=== PATIENT | female | born 1930 | race Caucasian/White ===

== ENCOUNTER 2017-03-21 08:47 | Outpatient (CLI) | payer MEDICARE, OTHER ==
--- NOTE | 2017-03-21 11:04 | CT ---
CT CHEST WITH CONTRAST: Date: 03/21/17 HISTORY: Lung cancer. COMPARISON: Prior CT chest dated 11/06/16. FINDINGS: The left upper lobe nodular density is similar along with nodularity of the right major fissure. The soft tissue thickening has decreased. Studding along the right heart border is improved. There are at electatic changes of the lung bases. Upper abdomen is unremarkable. The heart size is enlarged. No pericardial effusion. No acute osseous abnormality. Left upper lobe pulmonary nodule is similar, likely benign in nature. IMPRESSION: 1. Interval improvement of the studding along the right cardiac border, soft tissue thickening upper lobe right major fissure along the suture line, and decreased thickness of the right upper. 2. No new evidence of metastatic disease. 3. Density in the left lung apex is unchanged. This may be focal area of scar. POS: NORM
[2017-03-21] MEDS ORDERED: Iopamidol 370 76% 100 ML VIAL ONE (16:25)
== END 2017-03-21 08:48 | disposition home or self-care (01) ==
LOC: CT 08:47
PROVIDERS: ATTEND Internal Medicine Medical Oncology
DX: C34.90 Malignant neoplasm of unspecified part of unspecified bronchus or lung (principal)
CPT/HCPCS: 36415; 71260; 82565

== ENCOUNTER 2017-04-22 14:09 | Outpatient (CLI) | payer MEDICARE, OTHER | END 2017-04-22 14:10 | disposition home or self-care (01) | LOC: BICRAD 14:09 | PROVIDERS: ATTEND Internal Medicine Medical Oncology | DX: C34.90 Malignant neoplasm of unspecified part of unspecified bronchus or lung (principal) | CPT/HCPCS: 71046 ==

== ENCOUNTER 2017-06-10 10:05 | Outpatient (CLI) | payer MEDICARE, OTHER | END 2017-06-10 10:06 | disposition home or self-care (01) | LOC: BICRAD 10:05 | PROVIDERS: ATTEND Internal Medicine Medical Oncology | DX: C34.90 Malignant neoplasm of unspecified part of unspecified bronchus or lung (principal); J44.9 Chronic obstructive pulmonary disease, unspecified; I70.0 Atherosclerosis of aorta | CPT/HCPCS: 71046 ==

== ENCOUNTER 2017-08-05 08:27 | Outpatient (CLI) | payer MEDICARE, OTHER ==
[2017-08-05] MEDS ORDERED: ISOVUE-370 76%-LOCM 1 ML ONE (14:51)
== END 2017-08-05 08:28 | disposition home or self-care (01) ==
LOC: BICCT 08:27
PROVIDERS: ATTEND Internal Medicine Medical Oncology
DX: C34.11 Malignant neoplasm of upper lobe, right bronchus or lung (principal)
CPT/HCPCS: 71260; 82565

== ENCOUNTER 2017-10-15 16:33 | Outpatient (CLI) | payer MEDICARE, OTHER | END 2017-10-15 16:34 | disposition home or self-care (01) | LOC: BICRAD 16:33 | PROVIDERS: ATTEND Internal Medicine Medical Oncology | DX: C34.11 Malignant neoplasm of upper lobe, right bronchus or lung (principal) | CPT/HCPCS: 71046 ==

== ENCOUNTER 2017-12-05 12:35 | Outpatient (CLI) | payer MEDICARE, OTHER ==
--- NOTE | 2017-12-05 16:24 | RAD ---
CHEST 2 VIWES: HISTORY: Lung cancer. COMPARISON: Chest CT of 03/21/2017. FINDINGS: Similar appearance of nodular thickening right upper lobe. No new focal airspace consolidation, pneu mothorax, or effusion. Dual-lead pacer is present. IMPRESSION: No significant change. POS: C
== END 2017-12-05 12:36 | disposition home or self-care (01) ==
LOC: BICRAD 12:35
PROVIDERS: ATTEND Internal Medicine Medical Oncology
DX: C34.11 Malignant neoplasm of upper lobe, right bronchus or lung (principal)
CPT/HCPCS: 71046

== ENCOUNTER 2018-02-04 10:45 | Outpatient (CLI) | payer MEDICARE, OTHER ==
--- NOTE | 2018-02-04 11:49 | RAD ---
CHEST TWO VIEWS: HISTORY: Lung cancer. COMPARISON: 12/05/2017 FINDINGS: Stable left-sided transvenous pacemaker. Persistent atherosclerosis. Stable cardiac silhouette. Pu lmonary vessels and hilum are normal. Costophrenic angles are clear. Hyperinflation with chronic ch anges. No mass. No consolidation. Stable bilateral apical pleural thickening. No pneumothorax. N o acute osseous abnormalities. Stable suture chain projecting over the right mid lung. IMPRESSION: 1. No acute cardiopulmonary process. 2. Stable atherosclerosis. POS: NORM
== END 2018-02-04 10:46 | disposition home or self-care (01) ==
LOC: BICRAD 10:45
PROVIDERS: ATTEND Internal Medicine Medical Oncology
DX: C34.90 Malignant neoplasm of unspecified part of unspecified bronchus or lung (principal); I70.90 Unspecified atherosclerosis
CPT/HCPCS: 71046

== ENCOUNTER 2018-04-01 11:50 | Outpatient (CLI) | payer MEDICARE, OTHER ==
--- NOTE | 2018-04-01 13:56 | RAD ---
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 COMPARISON: 02/04/18. FINDINGS: Left ICD. Some postoperative changes and minimal scarring and volume loss in the right upper lobe. St able blunting of the right costophrenic angle. Left ICD. Heart size is within normal limits. IMPRESSION: Stable changes in right chest. No acute process. Atherosclerosis of aorta. POS: MACIE
== END 2018-04-01 11:51 | disposition home or self-care (01) ==
LOC: BICRAD 11:50
PROVIDERS: ATTEND Internal Medicine Medical Oncology
DX: C34.11 Malignant neoplasm of upper lobe, right bronchus or lung (principal); I70.0 Atherosclerosis of aorta
CPT/HCPCS: 71046

== ENCOUNTER 2018-05-27 13:28 | Outpatient (CLI) | payer MEDICARE, OTHER ==
--- NOTE | 2018-05-27 13:59 | RAD ---
EXAM: CHEST TWO VIEWS: History: Malignant neoplasm of upper lobe, right bronchus. Comparison: 04-01-18 FINDINGS: Minimal post-operative changes with some increased linear markings in the right upper lobe. Left ICD. Heart size is normal. Stable chronic changes. IMPRESSION: Stable appearing chest. No acute intrathoracic disease. POS: TPC
== END 2018-05-27 13:29 | disposition home or self-care (01) ==
LOC: BICRAD 13:28
PROVIDERS: ATTEND Internal Medicine Medical Oncology
DX: C34.11 Malignant neoplasm of upper lobe, right bronchus or lung (principal)
CPT/HCPCS: 71046

== ENCOUNTER 2018-07-22 09:40 | Outpatient (CLI) | payer MEDICARE ==
--- NOTE | 2018-07-22 10:54 | RAD ---
TWO VIEW CHEST: History: Neoplasm right upper lobe. Comparison: 05-27-18 FINDINGS: Right upper lobe density underneath the clavicle is unchanged. There are chronic lung parenchymal tawanda nges with increased interstitial markings. No evidence of infiltrate or acute process. Vascular jeri ngs within normal range. Heart size within normal range. Pacemaker leads are unchanged. IMPRESSION: Stable chest findings. POS: OFF
== END 2018-07-22 09:41 | disposition home or self-care (01) ==
LOC: BICRAD 09:40
PROVIDERS: ATTEND Internal Medicine Medical Oncology
DX: C34.11 Malignant neoplasm of upper lobe, right bronchus or lung (principal); J98.4 Other disorders of lung; Z95.0 Presence of cardiac pacemaker
CPT/HCPCS: 71046

== ENCOUNTER 2018-10-21 10:29 | Outpatient (CLI) | payer MEDICARE ==
--- NOTE | 2018-10-21 12:34 | RAD ---
PA AND LATERAL VIEWS CHEST: 10/21/18 HISTORY: Malignant neoplasm of left lobe right bronchus. FINDINGS: Comparison is made with exam of 07/22/18. The right upper lobe density is again seen. Left sided pacemaker device remains in place. The heart s ize is normal. The aorta is tortuous. No new focal foci of consolidation, pneumothoraces or pleural e ffusions are identified. IMPRESSION: Stable exam. POS: OFF
== END 2018-10-21 10:30 | disposition home or self-care (01) ==
LOC: BICRAD 10:29
PROVIDERS: ATTEND Internal Medicine Medical Oncology
DX: C34.11 Malignant neoplasm of upper lobe, right bronchus or lung (principal)
CPT/HCPCS: 71046

== ENCOUNTER 2019-03-02 15:42 | Outpatient (CLI) | payer MEDICARE ==
--- NOTE | 2019-03-02 15:56 | RAD ---
EXAM: Chest 2 views: HISTORY: Malignant neoplasm of the upper lobe of the lung COMPARISON: 10/21/2018 FINDINGS: There is a normal-sized cardiomediastinal silhouette. The pacemaker is unchanged in position. Increa sed interstitial markings are present. There is a nodular opacity projecting over the inferior aspect of the right upper lobe measuring 1.6 cm in size. The bones are unremarkable. IMPRESSION: Nodular opacity projecting over the right upper lobe.
== END 2019-03-02 15:43 | disposition home or self-care (01) ==
LOC: BICRAD 15:42
PROVIDERS: ATTEND Internal Medicine Medical Oncology
DX: C34.11 Malignant neoplasm of upper lobe, right bronchus or lung (principal); R91.8 Other nonspecific abnormal finding of lung field
CPT/HCPCS: 71046

== ENCOUNTER 2019-03-10 09:09 | Outpatient (CLI) | payer MEDICARE ==
--- NOTE | 2019-03-10 09:53 | CT ---
CT Chest W Con History: Lung cancer Comparison: Chest radiograph March 02, 2019. CT chest March 2017 Findings: Large layering left pleural effusion. Left apical scarring. Groundglass in the left upper l obe. GE peripheral reticular nodular opacities within the posterior segment right upper lobe. Mild bronchi ectasis and lower lobes. Scar along the right upper lobe posterior segment suture. No new suspicious solitary pulmonary nodule . There are a few groundglass opacities within the right lower lobe. Heart size mildly enlarged. Aortic contour is nonaneurysmal. No mediastinal adenopathy. There are hypodensities of the left kidney which appears similar to the comparison exam. Unchanged subtle lytic focus within the T5 vertebral body likely a hemangioma. No acute displaced rib fracture. Impression: 1. New moderate layering left pleural effusion. 2. No solid mass corresponding to the density seen on the recent radiograph likely confluent scar. 3. New from the comparison CT examination faint upper lobe peripheral groundglass as well as reticula r nodular opacities in the right lower lobe has appearance of infectious bronchitis. 4. 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 5. Relatively unchanged appearance of the left upper lobe pulmonary nodule axial image 41 measuring 3 mm given differences in slice selection from 2017.
[2019-03-10] MEDS ORDERED: Iopamidol-370 76% 500 ML 1 ML ONE (16:11)
== END 2019-03-10 09:10 | disposition home or self-care (01) ==
LOC: BICCT 09:09
PROVIDERS: ATTEND Internal Medicine Medical Oncology
DX: C34.11 Malignant neoplasm of upper lobe, right bronchus or lung (principal); J90 Pleural effusion, not elsewhere classified
CPT/HCPCS: 71260; Q9967